=== PATIENT | female | born 1945 | race African-American/Black ===

== ENCOUNTER 2017-01-26 12:25 | Inpatient (IN) | payer MEDICARE, OTHER ==
[~2017-01-26] VITALS: Ht 160 cm; Wt 81.6 kg
[~2017-01-26 12:25] MED LIST: ALPR1TAB2; LISI10TA6; QUET400T
[2017-01-26 13:27] LABS: Basophils # (auto) 0 uL; Basophils % (auto) 0.8 % (0.0-2.0); Eosinophils # (auto) 0.1 uL; Hematocrit 38.7 % (36.0-46.0); Hemoglobin 13.1 g/dL (12.2-16.2); Lymphocytes # (auto) 2.1 uL; Lymphocytes % (auto) 46.2 % (10.0-50.0); Mean Corpuscular Hemoglobin 31.1 pg (28.0-32.0); Mean Corpuscular Hgb Conc. 33.8 g/dL (32.0-36.0); Mean Corpuscular Volume 92.3 fL (80.0-100.0); Monocytes # (auto) 0.4 uL; Monocytes % (auto) 9.2 % (0.0-12.0); Neutrophils # (auto) 1.9 uL; Neutrophils % (auto) 41.8 % (37.0-80.0); Platelet Count (auto) 245 10^3/uL (140-450); Red Cell Distribution Width 14.7 % (11.8-14.3); White Blood Cell 4.5 10^3/uL (4.4-10.8)
[2017-01-26] MEDS ORDERED: SODIUM CHLORIDE 0.9% 1,000 ML IVB ONE (13:32)
[2017-01-26] MEDS ORDERED: cefTRIAXone 1GM/50ML D5W 50 ML IV ONE (13:45)
[2017-01-26 13:52] LABS: Albumin 3.6 g/dL (3.4-5.0); Alkaline Phosphatase 89 U/L (45-117); Anion Gap 10 (5-15); Aspartate Aminotransferase 11 U/L (15-37); BUN/Creatinine Ratio 21.6; Bilirubin, Total 0.5 mg/dL (0.2-1.0); Blood Urea Nitrogen 16 mg/dL (7-18); Calcium 8.7 mg/dL (8.5-10.1); Carbon Dioxide 23 mmol/L (21-32); Chloride 107 mmol/L (98-107); GFR African American 100 mL/min; GFR Non-African American 83 mL/min; Glucose 115 mg/dL (74-106); Potassium 3.5 mmol/L (3.5-5.1); Sodium 140 mmol/L (136-145); Total Protein 8.2 g/dL (6.4-8.2)
[2017-01-26 14:01] LABS: INR 1.02 (0.9-1.15); Partial Thromboplastin Time 34.5 sec (22.64-33.71); Prothrombin Time 11.1 sec (9.37-12.3)
[2017-01-26 14:07] LABS: Magnesium 2.2 mg/dL (1.6-2.6)
[2017-01-26] MEDS ORDERED: ALPRAZolam 0.5 MG TAB PO ONE (17:30)
[2017-01-26] MEDS ORDERED: ACETAMINOPHEN 325 MG TAB PO PRN (18:30)
[2017-01-26] MEDS ORDERED: ONDANSETRON HCL 4 MG/2 ML VIAL IV PRN (18:30)
[2017-01-26] MEDS ORDERED: ZOLPIDEM TARTRATE 5 MG TAB PO PRN (18:30)
[2017-01-26] MEDS ORDERED: ALUM & MAG HYDROX-SIMETH LIQ(MAALOX) 30 ML PO ONE (18:30)
[2017-01-26] MEDS ORDERED: NITROGLYCERIN 0.4 MG SL TAB SL PRN ×2 (18:30)
[2017-01-26] MEDS ORDERED: cloNIDine HCL 0.1 MG TAB PO PRN (18:30)
[2017-01-26] MEDS ORDERED: MORPHINE SULFATE 10 MG/ML INJ 1ML SDV IV PRN ×2 (18:30)
[2017-01-26] MEDS: ASPirin 81 mg TAB PO SCH (19:14)
[2017-01-26 20:00] VITALS: BP 115/62
[2017-01-26 20:33] LABS: B-Type Natriuretic Peptide 20.05 pg/mL (0-100)
[2017-01-26 20:50] LABS: Temperature: 22.9 C (20.0-25.0)
[2017-01-26] MEDS: SODIUM CHLOR 0.9% PF (SALINE LOCK) 10ML VIAL IV SCH (21:45)
[2017-01-26] MEDS: ATORVASTATIN 20 MG TAB PO SCH (21:46)
[2017-01-26] MEDS: ENALAPRIL MALEATE 2.5 MG TAB PO SCH (21:46)
[2017-01-26] MEDS: CARVEDILOL 3.125 MG TAB PO SCH (21:46)
[2017-01-26 21:55] VITALS: BP 115/62
[2017-01-26] MEDS ORDERED: AML5T PO (22:48)
[2017-01-27 05:06] VITALS: BP 159/80
[2017-01-27] MEDS: SODIUM CHLOR 0.9% PF (SALINE LOCK) 10ML VIAL IV SCH ×3 (06:04→21:53)
[2017-01-27 06:06] LABS: Hematocrit 38.3 % (36.0-46.0); Hemoglobin 12.3 g/dL (12.2-16.2); Mean Corpuscular Hemoglobin 30.5 pg (28.0-32.0); Mean Corpuscular Hgb Conc. 32.2 g/dL (32.0-36.0); Mean Platelet Volume 7.7 fL (6.9-10.8); Platelet Count (auto) 221 10^3/uL (140-450); Red Cell Distribution Width 15.4 % (11.8-14.3); White Blood Cell 4.7 10^3/uL (4.4-10.8)
[2017-01-27 06:18] LABS: Metamyelocytes % 0; Myelocytes % 0; Promyelocytes % 0; Reactive Lymphocytes 0
[2017-01-27 06:49] LABS: Platelet Estimate Adequate; RBC Morphology Normal
[2017-01-27 07:08] LABS: Albumin 3.1 g/dL (3.4-5.0); Bilirubin, Total 0.5 mg/dL (0.2-1.0); Calcium 8.6 mg/dL (8.5-10.1); Magnesium 2.6 mg/dL (1.6-2.6); Total Protein 7.4 g/dL (6.4-8.2)
[2017-01-27 07:57] VITALS: BP 145/90
[2017-01-27] MEDS: DOCUSATE SOD 100 MG CAP PO SCH (10:26)
[2017-01-27] MEDS: CARVEDILOL 3.125 MG TAB PO SCH (10:26)
[2017-01-27] MEDS: ENALAPRIL MALEATE 2.5 MG TAB PO SCH (10:27)
[2017-01-27] MEDS: CLOPIDOGREL BISULFATE 75 MG TAB PO SCH (10:27)
[2017-01-27] MEDS: ASPirin 81 mg TAB PO SCH (10:27)
[2017-01-27 12:19] VITALS: BP 136/88
[2017-01-27] MEDS ORDERED: ALPRAZolam 0.5 MG TAB PO PRN (13:45)
[2017-01-27 16:47] VITALS: BP 136/86
[2017-01-27] MEDS: ATORVASTATIN 20 MG TAB PO SCH (21:52)
[2017-01-27 22:25] VITALS: BP 145/70
[2017-01-28] MEDS ORDERED: VANCOMYCIN PER PHARMACY 0 MG IV SCH (01:00)
[2017-01-28] MEDS ORDERED: VANCOMYCIN 1GM/250ML 250 ML IV SCH (01:15)
[2017-01-28 05:27] VITALS: BP 131/59
[2017-01-28] MEDS ORDERED: VANCOMYCIN 1GM/250ML 250 ML IV ONE (06:15)
[2017-01-28] MEDS: SODIUM CHLOR 0.9% PF (SALINE LOCK) 10ML VIAL IV SCH ×2 (07:01→13:53)
[2017-01-28] MEDS ORDERED: ADENOSINE IV STA (08:48)
[2017-01-28] MEDS ORDERED: GIVE UN DILUTED IV STA (08:48)
[2017-01-28 08:52] VITALS: BP 149/55
[2017-01-28] MEDS ORDERED: DOXY-216 PO (09:57)
[2017-01-28] MEDS ORDERED: amLODIPine BESYLATE 5 MG TAB PO SCH (10:00)
[2017-01-28] MEDS ORDERED: DOXYCYCLINE 100 MG TAB/CAP PO SCH (10:00)
[2017-01-28] MEDS ORDERED: ALBUTEROL SULF 2.5 MG/0.5ML(0.5%) NEB SOLN ONE (11:20)
[2017-01-28] MEDS ORDERED: IPRATROPIUM BROM 0.5 MG/2.5ML INH SOL ONE (11:20)
[2017-01-28] MEDS: CLOPIDOGREL BISULFATE 75 MG TAB PO SCH (12:29)
[2017-01-28] MEDS: DOCUSATE SOD 100 MG CAP PO SCH (12:29)
[2017-01-28] MEDS: ASPirin 81 mg TAB PO SCH (12:30)
[2017-01-28 12:39] VITALS: BP 149/69
[2017-01-28 12:51] VITALS: BP 149/69
[2017-01-28] MEDS ORDERED: VANCOMYCIN 1,250 MG in D5W 5% 250 ML IV SCH (14:00)
[2017-01-28 16:21] VITALS: BP 126/51
== END 2017-01-28 19:45 | disposition home or self-care (01) | DRG 52 ==
LOC: EDBD 12:25 → ER 12:25 → TELE 12:26 → TELE-WESTW 19:34
PROVIDERS: ADMIT Internal Medicine; ATTEND Internal Medicine
DX: G92 Toxic encephalopathy (principal); I11.0 Hypertensive heart disease with heart failure; I50.32 Chronic diastolic (congestive) heart failure; F20.0 Paranoid schizophrenia; F32.9 Major depressive disorder, single episode, unspecified; I70.0 Atherosclerosis of aorta; F41.9 Anxiety disorder, unspecified; Z82.49 Family history of ischemic heart disease and other diseases of the circulatory system; Z87.891 Personal history of nicotine dependence
CPT/HCPCS: 36415; 70450; 71010; 78452; 80053; 80061; 80320; 83605; 83735; 83880; 84443; 84484; 85007; 85025; 85027; 85610; 85730; 87040; 87077; 87081; 87186; 93005; 93017; 93306; 94640; 94761; 96361; 96365; J0153; J0696; J7060